=== PATIENT | female | born 1995 | race Hispanic/Latino ===

== ENCOUNTER 2017-02-07 07:55 | Emergency (ER) | payer OTHER ==
[~2017-02-07] VITALS: Ht 172.7 cm; Wt 64.9 kg
== END 2017-02-07 08:45 | disposition home or self-care (01) ==
LOC: ED 07:55
DX: M43.6 Torticollis (principal); Z33.1 Pregnant state, incidental
CPT/HCPCS: 99282

== ENCOUNTER 2018-10-17 23:39 | Emergency (ER) | payer OTHER ==
[~2018-10-17] VITALS: Ht 165.1 cm; Wt 90.7 kg
[2018-10-18 01:31] VITALS: BP 136/87; TEMP 100.4
== END 2018-10-18 01:32 | disposition home or self-care (01) ==
LOC: ED 23:39
DX: J11.1 Influenza due to unidentified influenza virus with other respiratory manifestations (principal); R50.9 Fever, unspecified
CPT/HCPCS: 87502; 99283